=== PATIENT | female | born 1955 | race Two or more races ===

== ENCOUNTER 2019-11-04 07:08 | Outpatient (CLI) | payer OTHER | END 2019-11-04 07:18 | disposition home or self-care (01) | LOC: TOM 07:08 | DX: K56.691 Other complete intestinal obstruction (principal); R19.5 Other fecal abnormalities ==

== ENCOUNTER 2023-12-26 16:29 | Emergency (ER) | payer OTHER ==
[~2023-12-26] VITALS: Ht 162.6 cm; Wt 73.0 kg
[2023-12-26] MEDS ORDERED: JANUMET 50-1,01 EACH PO (17:58)
[2023-12-26] MEDS ORDERED: VASOTEC10 MG PO (17:58)
[2023-12-26] MEDS ORDERED: KETOROLAC TROMETHAMINE 60 MG VIAL IM ONE (18:30)
== END 2023-12-26 23:13 | disposition home or self-care (01) ==
LOC: ER 16:30
DX: S89.80XA Other specified injuries of unspecified lower leg, initial encounter (principal); V19.9XXA Pedal cyclist (driver) (passenger) injured in unspecified traffic accident, initial encounter; Y93.79 Activity, other specified sports and athletics; Y92.89 Other specified places as the place of occurrence of the external cause; Y99.8 Other external cause status; I10 Essential (primary) hypertension; E11.9 Type 2 diabetes mellitus without complications; Z79.84 Long term (current) use of oral hypoglycemic drugs